=== PATIENT | male | born 1975 | race Caucasian/White ===

== ENCOUNTER → 2016-09-08 | Outpatient (CLI) | payer BC ==
[~2016-09-08] MED LIST: RIVA1TAB4 PO
--- NOTE | 2016-09-08 10:39 | DIAGNOSTIC IMAGING REPORT ---
LUMBAR SPINE MIN 4 VIEWS CLINICAL HISTORY: Lower back pain for COMPARISON: MRI of the lumbar spine July 21, 2012. FINDINGS: There are findings consistent with an L5-S1 decompression with discectomy and bilateral pedicle screw fusion. Hardware is intact. Alignment of lumbar spine is anatomic. Vertebral body heights are maintained. Mild multilevel osteophytosis and minimal disc space narrowing is noted. IMPRESSION: 1. Expected findings following L5-S1 discectomy and bilateral pedicle screw fusion. 2. No lumbar spine fracture. 3. Minimal degenerative disc disease at several additional levels within the lumbar spine. Electronically signed by: Lázaro Hendrickson M.D. 09/08/2016 10:38 AM Dictated Date/Time: 09/08/2016 10:31 AM
== END | disposition home or self-care (01) ==
LOC: C.RDSM 10:12
PROVIDERS: ATTEND Internal Medicine
DX: M54.5 Low back pain (principal); Z98.1 Arthrodesis status

== ENCOUNTER → 2017-02-03 | Outpatient (CLI) | payer BC ==
--- NOTE | 2017-02-03 15:11 | DIAGNOSTIC IMAGING REPORT ---
ABDOMEN LIMITED (US) HISTORY: 41 years-old Male RT LOWER QUAD PAIN,POSS DIVERTICULITIS/BLOCKAGE COMPARISON: None available TECHNIQUE: Multiple real-time sonographic images of the abdominal right and left lower quadrants were obtained assessing grayscale appearance. FINDINGS: The appendix is not identified secondary to obscuring bowel gas and patient body habitus. No focal abnormal fluid collections identified. Single image of the right upper quadrant demonstrates a normal-appearing gallbladder. No hyperemic mesenteric fat or hypoperistaltic bowel identified. IMPRESSION: Nonvisualization of the appendix secondary to body habitus and obscuring bowel gas. No focal fluid collections or secondary signs of acute appendicitis. The above report was generated using voice recognition software. It may contain grammatical, syntax or spelling errors. Electronically signed by: Cullen Baig M.D. 02/03/2017 3:09 PM Dictated Date/Time: 02/03/2017 3:07 PM
== END | disposition home or self-care (01) ==
LOC: C.ULTR 14:18
PROVIDERS: ATTEND Family Medicine
DX: R10.31 Right lower quadrant pain (principal); K59.00 Constipation, unspecified